=== PATIENT | male | born 1995 | race Two or more races ===

== ENCOUNTER 2021-03-03 10:34 | Emergency (ER) | payer MEDICAID ==
[~2021-03-03] VITALS: Ht 180.3 cm; Wt 98.1 kg
[2021-03-03 10:56] VITALS: BP 155/90
[2021-03-03 11:18] LABS: CLARITY,URINE CLEAR (Clear); COLOR,URINE YELLOW (Yellow); GLUCOSE, URINE NEGATIVE (Neg); KETONES,URINE NEGATIVE (Neg); LEUKOCYTE ESTERASE ,URINE NEGATIVE (Neg); NITRITES, URINE NEGATIVE (Neg); OCCULT BLOOD,URINE NEGATIVE (Neg); PH,URINE 7.5 (4.8-8.0); PROTEIN,URINE NEGATIVE (Neg); UROBILINOGEN,URINE 0.2 E.U/dL (0.2-1.0)
[2021-03-03 11:26] LABS: UA COLLECTION TYPE CLN CATCH MIDSTREAM
== END 2021-03-03 13:28 | disposition home or self-care (01) ==
LOC: ER 10:34
DX: N50.3 Cyst of epididymis (principal); N43.3 Hydrocele, unspecified; R30.9 Painful micturition, unspecified; R10.31 Right lower quadrant pain; N50.812 Left testicular pain; N50.811 Right testicular pain
CPT/HCPCS: 76870; 81003; 93976; 99284